=== PATIENT | female | born 1980 | race Caucasian/White ===

== ENCOUNTER 2018-09-03 06:56 | Inpatient (IN) | payer MEDICARE, OTHER ==
[2018-09-03] MEDS ORDERED: LACTATED RINGERS 1,000 ML IV ONE (07:49)
[2018-09-03] MEDS ORDERED: SCOPOLAMINE HYDROBROMIDE 1.5MG/72HR PATCH TD ONE ×2 (07:49→08:48)
[2018-09-03] MEDS ORDERED: ENOXAPARIN SODIUM 40 MG/0.4 ML DISP.SYRIN SQ ONE ×2 (07:49→08:48)
[2018-09-03] MEDS ORDERED: LEVALBUTEROL NEB 1.25 MG/3 ML VIAL.NEB IH ONE (07:50)
[2018-09-03] MEDS ORDERED: FAMOTIDINE 20 MG/2 ML VIAL ONE ×2 (07:51→08:48)
[2018-09-03] MEDS ORDERED: PREGNANCY TEST KIT 1 EACH KIT MC ONE (07:51)
[2018-09-03] MEDS ORDERED: LIDOCAINE HCL 2% PF 100MG/5ML VIAL IJ ONE (08:48)
[2018-09-03] MEDS ORDERED: ceFAZolin SODIUM 1 GM VIAL ONE (08:48)
[2018-09-03] MEDS ORDERED: LACTATED RINGERS 1,000 ML IV.SOLN IV ONE (08:48)
[2018-09-03] MEDS ORDERED: HYDROmorphone HCL/PF 2 MG/ML VIAL ONE ×2 (08:48→13:19)
[2018-09-03] MEDS ORDERED: SUGAMMADEX SODIUM 200 MG/2 ML VIAL IV ONE (08:48)
[2018-09-03] MEDS ORDERED: DEXAMETHASONE SOD PHOS 4 MG/ML VIAL ONE (08:48)
[2018-09-03] MEDS ORDERED: ONDANSETRON HCL/PF 4 MG/ 2ML VIAL ONE (08:48)
[2018-09-03] MEDS ORDERED: PROPOFOL 200 MG/20 ML VIAL IV ONE (08:48)
[2018-09-03] MEDS ORDERED: SEVOFLURANE 250 ML LIQUID IH ONE (08:48)
[2018-09-03] MEDS ORDERED: fentaNYL CITRATE/PF 100 MCG/2 ML INJ. ONE ×2 (08:48→12:45)
[2018-09-03] MEDS ORDERED: ePHEDrine SULFATE 50 MG/1 ML IVP ONE (08:48)
[2018-09-03] MEDS ORDERED: GLYCOPYRROLATE 0.2 MG/1 ML 1 ML ONE (08:48)
[2018-09-03] MEDS ORDERED: ROCURONIUM BROMIDE 10 MG/ML 5ML VIAL ONE (08:48)
[2018-09-03] MEDS ORDERED: MIDAZOLAM HCL 2 MG/2 ML VIAL ONE ×3 (08:48→12:46)
[2018-09-03] MEDS ORDERED: PROMETHAZINE HCL 25 MG/ML VIAL ONE ×3 (08:48→13:20)
[2018-09-03] MEDS: MORPHINE SULFATE 2 MG/ML VIAL IVP PRN ×2 (14:55→20:28)
[2018-09-03] MEDS: ONDANSETRON HCL/PF 4 MG/ 2ML VIAL IVP PRN ×2 (14:55→20:29)
--- NOTE | 2018-09-03 16:00 | History and Physical Report ---
History of Present Illnes - History of Present Illness Reason for Visit: S/P Gastric Sleeve History of Present Illness: Patient is a 37-year-old female who has tried multiple diets and exercise programs with no success. She states that she has always been overweight- she has a lot of family members that are overweight. She has had multiple back surgeries that have caused her to not be able to exercise or walk much. Patient and surgeon decided to proceed with gastric sleeve procedure. Procedure went well without complications- patient will be admitted and monitored s/p surgical intervention. - Past Medical History Cardiac: HTN, Hyperlipidemia, Other (EF 65% on 04/30/18) [employer]: Migraine, TIA (last in ) Gastrointestinal: GERD Psych: Anxiety, Bipolar Rheumatologic: Fibromyalgia Renal/: Other (Elevated Liver Enzymes) Endocrine: obesity Grav: 3 Ab: 3 - Past Surgical History Past Surgical History: Appendectomy, Other (back surgery x8 lumbar & foot x2), Other (D&C) - Past Family History Mother Family History: Other (obesity) - Past Social History Smoke: Quit Occupation: desk manager Alcohol: None Drugs: Marijuana Lives: With Family Domestic Violence: Negative - Health Maintenance Health Maintenance: Cholesterol, Tetanus, Influenza Vaccine Influenza Vaccine: Current for this Influenza Season Pneumonia Vaccine: No Resuscitation Status: Resusciation Status Resuscitation Status Full Code - Unable to Obtain History Unable to Obtain: No Review of Systems - Review of Systems Constitutional: negative: Fever, Chills Eyes: negative: pain, vision change ENT: negative: Ear Pain, Nose Pain, Throat Pain Respiratory: negative: Cough, Shortness of Breath Cardiovascular: Other (Cleared by cardiology EF 65%). negative: Chest Pain, Light Headedness Gastrointestinal: Nausea, Vomiting, Abdominal Pain (s/p gastric sleeve) Genitourinary: negative: Dysuria Musculoskeletal: Back Pain Skin: negative: Rash Neurological: negative: Change in Speech - Medications/Allergies Allergies/Adverse Reactions: Allergies Allergy/AdvReac Type Severity Reaction Status Date / Time Penicillins Allergy Mild Rash Verified 09/03/18 16:41 NSAIDS (Non-Steroidal Allergy Unknown Verified 09/03/18 16:41 Anti-Inflamma erythromycin base Allergy Verified 09/03/18 14:11 latex Allergy Verified 09/03/18 14:11 tramadol Allergy Verified 09/03/18 14:11 Home Medications: Home Medications Baclofen 10 mg PO BID 09/03/18 CloNIDine HCL [Catapress] 3 tab PO BID 09/03/18 Metoprolol Succinate 25 mg PO BID 09/03/18 Morphine Sulfate 30 mg PO BID 09/03/18 Ranitidine HCl 150 mg PO BID 09/03/18 Varenicline Tartrate [Chantix] 1 mg PO TID 09/03/18 Current Inpatient Medications: Current Inpatient Medications Cefazolin Sodium/Dextrose (Cefazolin 1 G/50 Ml-Dextrose) 1 gm IV Q8H [facility] Stop: 09/04/18 03:31 Enoxaparin Sodium (Lovenox) 40 mg SQ QD [facility] Stop: 09/18/18 14:59 Famotidine (Pepcid) 20 mg IVP BID [facility] Stop: 09/07/18 20:59 Promethazine HCl 25 mg/ Sodium (Chloride) 51 mls @ 200 mls/hr IV Q6 PRN PRN Reason: Nausea / Vomiting Stop: 09/07/18 14:11 Sodium Chloride (Normal Saline) 1,000 mls @ 150 mls/hr IV Q8H [facility] Ketorolac Tromethamine (Toradol) 30 mg IVP Q6 PRN PRN Reason: For Mild Pain Stop: 09/07/18 14:11 Morphine Sulfate (Morphine Sulfate) 2 mg IVP Q2 PRN PRN Reason: Mod. pain if unable to take PO Ondansetron HCl (Zofran 4 Mg/2 Ml) 4 mg IVP Q6H PRN PRN Reason: Nausea / Vomiting Stop: 09/07/18 14:11 Oxycodone HCl (Oxycodone Soln) 5 mg PO Q6 PRN PRN Reason: pain 5-7 Exam - Exam General: Alert, Oriented to Person, Oriented to Place, Cooperative, Mild distress, Morbidly Obese HEENT: Atraumatic, Mouth Mucous membr. moist/[place], Nose Mucous membr. moist/[place] Neck: Normal Range of Motion Carotids: No bruit Lungs: Clear to auscultation, Normal air movement Cardiovascular: Regular rate, Normal S1, Normal S2 Peripheral Edema: None Peripheral Pulses: 2+ Abdomen: Soft, Decreased Bowel Sounds Integumentary: Normal, [place], Warm, Dry, Other (incision site drsg dry/intact) Extremities: Normal pulses, No tenderness/swelling Neurological: Normal gait, Strength Equal Bilat, Sensation intact Psych/Mental Status: Mental status NL, Mood NL, Appropriate Affect Assessment/Plan - Assessment/Plan (1) S/P gastric surgery Status: Acute Current Visit: Yes Assessment: Incisions are without redness/erythema, legs are without tenderness/pain, LCTA Plan: Will monitor incision sites, patient will be placed on Lovenox daily, frequent ambulation and SCDs while in bed, patient will use incentive spirometer to prevent resp. infections, will start PPI, and will give IVFs until patient can t olerate PO (2) Morbid obesity due to excess calories Status: Acute Current Visit: Yes Assessment: S/P Gastric Sleeve (3) Depression with anxiety Status: Acute Current Visit: Yes Assessment: Stable on home meds Plan: Will hold meds today due to nausea and vomiting (4) Fibromyalgia Status: Acute Current Visit: Yes Assessment: stable on home meds Plan: Will hold medications at this time d/t nausea/vomiting (5) Hypertension Status: Acute Current Visit: Yes Qualifiers: Hypertension type: essential hypertension Qualified Code(s): I10 - Essential (primary) hypertension Assessment: Blood pressures stable, will continue to monitor Plan: Will hold blood pressure medications and monitor closely (6) Hyperlipidemia Status: Acute Current Visit: Yes Assessment: sTable on home meds Plan: will hold meds today d/t nausea and vomiting (7) GERD (gastroesophageal reflux disease) Status: Acute Current Visit: Yes Qualifiers: Esophagitis presence: without esophagitis Qualified Code(s): K21.9 - Gastro-esophageal reflux disease without esophagitis Assessment: stable on home meds Plan: Will give Pepcid IV VTE Assessment - RISK FACTOR SCORE VTE RISK FACTOR SCORES: OBESITY, MAJOR SURGERY/ANESTHESIA TIME > 1 HOUR (Lovenox daily, frequent ambulation, SCDs while in bed)
[2018-09-03 18:12] VITALS: BMI 45.6
[2018-09-03] MEDS: 0.9 % SODIUM CHLORIDE 1,000 ML IV SCH ×2 (19:02→21:45)
[2018-09-03] MEDS: KETOROLAC TROMETHAMINE 30 MG/1ML VIAL IVP PRN (19:03)
[2018-09-03] MEDS: FAMOTIDINE 20 MG/2 ML VIAL IVP SCH (19:37)
[2018-09-03] MEDS: PROMETHAZINE HCL 25 MG in 0.9 % SODIUM CHLORIDE 50 ML IV PRN (20:27)
[2018-09-03] MEDS ORDERED: MAG HYDROX/ALUMINUM HYD/SIMETH 30 ML UDC PO ONE (23:35)
[2018-09-03] MEDS ORDERED: METOCLOPRAMIDE HCL 10 MG/2 ML VIAL IVP ONE (23:36)
[2018-09-04] MEDS: ONDANSETRON HCL/PF 4 MG/ 2ML VIAL IVP PRN ×3 (02:20→19:33)
[2018-09-04] MEDS: MORPHINE SULFATE 2 MG/ML VIAL IVP PRN (02:20)
[2018-09-04] MEDS: PROMETHAZINE HCL 25 MG in 0.9 % SODIUM CHLORIDE 50 ML IV PRN ×3 (03:14→20:54)
[2018-09-04] MEDS: 0.9 % SODIUM CHLORIDE 1,000 ML IV SCH (04:04)
[2018-09-04] MEDS: KETOROLAC TROMETHAMINE 30 MG/1ML VIAL IVP PRN (04:19)
[2018-09-04] MEDS ORDERED: ENOXAPARIN SODIUM 40 MG/0.4 ML DISP.SYRIN SQ ONE (08:18)
[2018-09-04] MEDS: FAMOTIDINE 20 MG/2 ML VIAL IVP SCH ×2 (09:05→21:01)
[2018-09-04] MEDS: MORPHINE SULFATE 10MG/0.5ML ORAL SOLN UD CUP PO SCH ×2 (11:37→21:10)
--- NOTE | 2018-09-04 13:34 | Inpatient Progress Note ---
Subjective - Required Recertification Statement I anticipate X number of days because-include discharge plan: 1 - Review of Systems Subjective: Patient complains of back pain. She takes morphine 30 mg bid at home. This has been stopped since she was admitted here. Ambulating and tolerating fluid ok. Objective - Exam Vitals and I&O: Vital Signs Temp 98.6 F 09/04/18 13:15 Pulse 101 H 09/04/18 13:15 Resp 22 09/04/18 13:15 BP 161/87 09/04/18 13:15 Pulse Ox 96 09/04/18 13:15 Intake & Output 09/03/18 09/04/18 09/04/18 23:59 11:59 23:59 Intake Total 600 25 Output Total 2 1600 750 Balance 978 1600 -318 Weight 117 kg Intake: IV 600 Right Hand 600 Oral 25 Output: Urine 2 1600 750 Other: # Voids 2 2 3 # Bowel Movements 0 General: Alert, Oriented to Person, Oriented to Place, Oriented to Time, Cooperative, No acute distress Lungs: Clear to auscultation Cardiovascular: Regular rate Abdomen: Normal bowel sounds, Soft. No: No tenderness (Mild tender. No rebound. Bandages C/D/I) Assessment/Plan - Assessment/Plan (1) Chronic back pain Status: Acute Current Visit: Yes Plan: STart morphine liquid at 10 mg twice a day. (2) S/P gastric surgery Status: Acute Current Visit: Yes Plan: Continue current plans. Patient lennox [place]ona.
[2018-09-04] MEDS ORDERED: ENOXAPARIN SODIUM 40 MG/0.4 ML DISP.SYRIN SQ SCH (15:00)
[2018-09-05] MEDS: 0.9 % SODIUM CHLORIDE 1,000 ML IV SCH ×2 (00:49→08:29)
[2018-09-05] MEDS: PROMETHAZINE HCL 25 MG in 0.9 % SODIUM CHLORIDE 50 ML IV PRN (03:16)
[2018-09-05] MEDS: KETOROLAC TROMETHAMINE 30 MG/1ML VIAL IVP PRN (03:23)
--- NOTE | 2018-09-05 07:39 | Discharge Summary ---
Discharge Summary - Discharge Sumary History of Present Illness: Patient is a 37-year-old female who has tried multiple diets and exercise programs with no success. She states that she has always been overweight- she has a lot of family members that are overweight. She has had multiple back surgeries that have caused her to not be able to exercise or walk much. Patient and surgeon decided to proceed with gastric sleeve procedure. Procedure went well without complications- patient will be admitted and monitored s/p surgical intervention. Condition at Discharge: Stable Home Medications: Ambulatory Orders Medication Instructions Recorded Baclofen 10 mg PO BID 09/03/18 CloNIDine HCL [Catapress] 3 tab PO BID 09/03/18 Metoprolol Succinate 25 mg PO BID 09/03/18 Morphine Sulfate 30 mg PO BID 09/03/18 Ranitidine HCl 150 mg PO BID 09/03/18 Varenicline Tartrate [Chantix] 1 mg PO TID 09/03/18 Consultations this Visit: None Procedures this Visit: None, Other (s/p gastric sleeve) Allergies/Adverse Reactions: Allergies Allergy/AdvReac Type Severity Reaction Status Date / Time Penicillins Allergy Mild Rash Verified 09/03/18 16:41 NSAIDS (Non-Steroidal Allergy Unknown Verified 09/03/18 16:41 Anti-Inflamma erythromycin base Allergy Verified 09/03/18 14:11 latex Allergy Verified 09/03/18 14:11 tramadol Allergy Verified 09/03/18 14:11 Patient Problems: Current Active Problems Problem Status Onset Chronic back pain Acute Depression with anxiety Acute Fibromyalgia Acute GERD (gastroesophageal reflux disease) Acute Hyperlipidemia Acute Hypertension Acute Morbid obesity due to excess calories Acute S/P gastric surgery Acute Discharge Summary: Patient underwent sleeve gastrectomy. She had some nausea and pain that was improved with ambulation and IS. She was started on scheduled morphine due to chronic back pain and taking it at home. She did not have a ride until 09-05-18 so she was kept in house. She tolerated advancing diet to full liquids. Hospital Course: Discharge Dx -- morbid obesity (s/p sleeve gastrectomy); fibromyalgia; chronic back pain
[2018-09-05] MEDS: FAMOTIDINE 20 MG/2 ML VIAL IVP SCH (08:30)
[2018-09-05] MEDS: MORPHINE SULFATE 10MG/0.5ML ORAL SOLN UD CUP PO SCH (08:30)
[2018-09-05 11:38] VITALS: BP 147/79
== END 2018-09-05 10:40 | disposition home or self-care (01) | DRG 621 ==
LOC: OBSVTOIN 06:56 → SOUTH 06:56 → UNDOADMOB 13:55 → SOUTH 13:55 → UNDODISOB 09-05 10:40
PROVIDERS: ADMIT Nurse Practitioner Family; ATTEND Nurse Practitioner Family
PROC: 0DB64Z3 Excision of Stomach, Percutaneous Endoscopic Approach, Vertical (ICD-10-PCS; principal; 2018-09-03)
DX: E66.01 Morbid (severe) obesity due to excess calories (principal); Z68.41 Body mass index [BMI] 40.0-44.9, adult; I10 Essential (primary) hypertension; E78.5 Hyperlipidemia, unspecified; K21.9 Gastro-esophageal reflux disease without esophagitis; M79.7 Fibromyalgia; F41.9 Anxiety disorder, unspecified; F32.9 Major depressive disorder, single episode, unspecified; Z32.02 Encounter for pregnancy test, result negative
CPT/HCPCS: 43235; 43775; 81025; 88305; 97161; 97165; 97535; A9270; J0690; J1100; J1170; J1650; J1885; J2001; J2250; J2270; J2405; J2550; J2704; J3010; J3490; J7030; J7120; J7614; 99217; 99219; 99224; 99232; 99238; G0378; G0379